=== PATIENT | male | born 1960 | race Caucasian/White ===

== ENCOUNTER 2016-06-18 05:49 | Observation (INO) | payer BC ==
[~2016-06-18] VITALS: Ht 182.9 cm; Wt 85.6 kg
[2016-06-18 06:19] LABS: HEMATOCRIT 46.2 % (38.0-50.0); MCHC 32.9 G/DL (30.0-36.0); MCV 94.1 FL (86-99); MEAN PLAT.VOLUME 10.2 uM^3 (9.0-12.4); PLATELET COUNT 231 K/uL (156-360); RBC DIS.WIDTH-CV 12.9 % (11.8-14.6); RBC DIS.WIDTH-SD 44.9 % (39-53); RED BLOOD COUNT 4.91 M/uL (4.00-5.50); WHITE BLOOD COUNT 7.7 K/uL (4.1-10.2)
[2016-06-18 06:29] LABS: CHLORIDE 108 mEq/L (99-109); SODIUM 142 mEq/L (136-147)
[2016-06-18 06:31] LABS: GLUCOSE 118 mg/dL (70-99)
[2016-06-18 06:33] LABS: ANION GAP 11 MEQ/L (2-14)
[2016-06-18 06:35] LABS: GFR ESTIMATE (CALCULATED) > 59 mL/min/
[2016-06-18 06:36] LABS: UREA NITROGEN (BUN) 21 mg/dL (9-23)
[2016-06-18 06:39] LABS: TROP-I INTERPRETATION NEGATIVE; TROPONIN-I < 0.01 ng/mL (0.0-0.30)
[2016-06-18 06:52] LABS: D-DIMER ELISA < 0.15 mg/L FEU (< 0.57)
[2016-06-18 10:00] VITALS: BP 117/60
[2016-06-18 12:03] VITALS: BP 111/66
[2016-06-18 12:54] LABS: TROP-I INTERPRETATION NEGATIVE; TROPONIN-I < 0.01 ng/mL (0.0-0.30)
[2016-06-18 15:38] VITALS: BP 100/62
[2016-06-18] MEDS ORDERED: ASPIR-LOW81 MG PO (16:36)
[2016-06-18] MEDS ORDERED: NITROSTAT0.4 MG SL (16:37)
[2016-06-18] MEDS ORDERED: MULTIVITAMIN1 EAC2 PO (17:03)
[2016-06-18 18:14] LABS: TROP-I INTERPRETATION NEGATIVE; TROPONIN-I < 0.01 ng/mL (0.0-0.30)
[2016-06-18 19:43] VITALS: BP 103/65
[2016-06-18 23:57] VITALS: BP 101/59
[2016-06-19 04:00] VITALS: BP 101/59
[2016-06-19 06:06] LABS: MCH 30.6 PG (29.0-34.0); MCHC 32.6 G/DL (30.0-36.0); MEAN PLAT.VOLUME 10.9 uM^3 (9.0-12.4); PLATELET COUNT 191 K/uL (156-360); RBC DIS.WIDTH-CV 13.2 % (11.8-14.6); RBC DIS.WIDTH-SD 45.1 % (39-53); RED BLOOD COUNT 4.47 M/uL (4.00-5.50); WHITE BLOOD COUNT 7.1 K/uL (4.1-10.2)
[2016-06-19 06:26] LABS: ANION GAP 6 MEQ/L (2-14); CHLORIDE 107 MEQ/L (99-109); GFR ESTIMATE (CALCULATED) > 59 mL/min/; GLUCOSE 98 mg/dL (70-99); POTASSIUM 4.1 MEQ/L (3.7-5.4); SAMPLE HEMOLYSIS CHECK 0; SAMPLE ICTERIC CHECK 0; SAMPLE LIPEMIA CHECK 0; SODIUM 141 MEQ/L (136-147); UREA NITROGEN (BUN) 18 mg/dL (9-23)
[2016-06-19 08:40] VITALS: BP 106/66
== END 2016-06-19 10:08 | disposition home or self-care (01) ==
LOC: EME 05:49 → EDOF 08:25 → 5WEST 09:26
PROVIDERS: Internal Medicine
DX: R07.89 Other chest pain (principal); R55 Syncope and collapse; R94.31 Abnormal electrocardiogram [ECG] [EKG]
CPT/HCPCS: 71020; 80048; 84484; 85027; 85379; 93005; 99281; 99285; G0378; J7030